=== PATIENT | female | born 1960 | race Caucasian/White ===

== ENCOUNTER 2020-05-09 14:37 | Outpatient (CLI) | payer BC ==
--- NOTE | 2020-05-09 15:16 | RAD ---
Exam: XR Knee Lt 4 View STANDARD HISTORY: Left knee pain. COMPARISON: None FINDINGS: No acute fracture, dislocation, or other acute osseous abnormality is identified. There is suggestion of a small joint effusion. IMPRESSION: No acute osseous abnormality is identified. However, there is suggestion of a small joint effusion. I f there is concern for internal derangement, MRI left knee is suggested for further evaluation.
== END 2020-05-09 14:38 | disposition home or self-care (01) ==
LOC: BICRAD 14:37
PROVIDERS: ATTEND Specialist
DX: M25.562 Pain in left knee (principal)